=== PATIENT | male | born 1980 ===

== ENCOUNTER 2016-10-18 08:00 | Emergency (ER) | payer OTHER ==
[2016-10-18 08:18] VITALS: BP 114/76; PULSE 60; RESP 20; TEMP 98.6; O2SAT 98
--- NOTE | 2016-10-18 09:05 | C.PDOC ---
History Of Present Illness 35-year-old male, presents to the emergency department with complaints of 3- week duration of B/L knee pain. Pain is intermittent in nature, described as aching sensation and worse at the end of the day. States his job requires him to stand for prolonged periods. He tried changing his shoes with no relief. Denies nausea/vomiting, numbness/weakness, fevers, shortness of breath, swelling in legs or any other associated symptoms. No other complaints at this time. Time Seen by Provider: 10/18/16 08:30 Chief Complaint (Nursing): Lower Extremity Problem/Injury History Per: Patient History/Exam Limitations: no limitations Onset/Duration Of Symptoms: Days Current Symptoms Are (Timing): Still Present Severity: Moderate Past Medical History Reviewed: Historical Data, Nursing Documentation, Vital Signs Vital Signs: Last Vital Signs Temp 98.6 F 10/18/16 08:17 Pulse 60 10/18/16 08:17 Resp 20 10/18/16 08:17 BP 114/76 10/18/16 08:17 Pulse Ox 98 10/18/16 09:54 Family History: States: No Known Family Hx - Social History Hx Alcohol Use: Yes Hx Substance Use: No - Immunization History Hx Tetanus Toxoid Vaccination: No Hx Influenza Vaccination: No Hx Pneumococcal Vaccination: No Review Of Systems Except As Marked, All Systems Reviewed And Found Negative. Constitutional: Negative for: Fever, Chills Respiratory: Negative for: Cough, Shortness of Breath Gastrointestinal: Negative for: Nausea, Vomiting Musculoskeletal: Positive for: Leg Pain (bilateral knees pain) Skin: Negative for: Rash Physical Exam - Physical Exam Appears: Non-toxic, No Acute Distress Skin: Warm, Dry, No Rash, No Ecchymosis Head: Atraumatic, Normacephalic Eye(s): bilateral: Normal Inspection Neck: Normal ROM Chest: Symmetrical Extremity: Normal ROM, No Tenderness, No Pedal Edema, No Calf Tenderness, No Deformity, No Swelling Pulses: Left Dorsalis Pedis: Normal, Right Dorsalis Pedis: Normal Neurological/Psych: Oriented x3, Normal Speech Gait: Steady ED Course And Treatment O2 Sat by Pulse Oximetry: 98 Medical Decision Making Medical Decision Making: Impression 35 yo male with bilateral knee pain, no trauma Plan: * Toradol Reassess and Disposition Patient reports relief of pain. Based on history and exam, xray not indicated. bilateral knee joint pain, and no findings on exam. Recommend analgesics and rest when able to and elevate legs. May follow up in the clinic Disposition Counseled Patient/Family Regarding: Need For Followup, Rx Given - Disposition Referrals: [facility] [Outside] [facility] [Outside] [facility] [place] [Outside] Disposition: HOME/ ROUTINE Disposition Time: 09:02 Condition: STABLE Additional Instructions: [place] medicamentos para el dolor segn sea necesario, ibuprofeno 600mg cada 8 horas con alimentos para no molestar el estmago. Si el dolor persiste, realice el seguimiento con ortopedia en sly semana.... Prescriptions: Ibuprofen [Motrin] 600 mg PO Q8 #30 tab Instructions: Knee Pain (ED) Print Language: TURKISH - POA Present On Arrival: None - Clinical Impression Clinical Impression: Knee pain, bilateral - Scribe Statement The provider has reviewed the documentation as recorded by the Scribe (Jennifer Pavon) All medical record entries made by the Scribe were at my direction and personally dictated by me. I have reviewed the chart and agree that the record accurately reflects my personal performance of the history, physical exam, medical decision making, and the department course for this patient. I have also personally directed, reviewed, and agree with the discharge instructions and disposition.
== END 2016-10-18 09:21 | disposition home or self-care (01) ==
LOC: C.ER 08:00
DX: M25.562 Pain in left knee (principal); M25.561 Pain in right knee
CPT/HCPCS: 96372; 99284; J1885

== ENCOUNTER 2017-04-07 09:54 | Emergency (ER) | payer OTHER ==
[2017-04-07 10:00] VITALS: BMI 25.4
[2017-04-07 10:03] VITALS: BP 114/74; PULSE 67; RESP 18; TEMP 97.7; O2SAT 97
--- NOTE | 2017-04-07 11:43 | C.PDOC ---
Time Seen by Provider: 04/07/17 10:25 Chief Complaint (Nursing): Cough, Cold, Congestion History Per: Patient Onset/Duration Of Symptoms: Days (3) Current Symptoms Are (Timing): Still Present Associated Symptoms: Sore Throat, Cough, Myalgias, Nasal Congestion Severity: Moderate Additional History Per: Prior Records Past Medical History Reviewed: Historical Data, Nursing Documentation, Vital Signs Vital Signs: Last Vital Signs Temp 97.7 F 04/07/17 10:00 Pulse 67 04/07/17 10:00 Resp 18 04/07/17 10:00 BP 114/74 04/07/17 10:00 Pulse Ox 97 04/07/17 10:00 - Medical History PMH: No Chronic Diseases Surgical History: No Surg Hx Family History: States: Unknown Family Hx - Social History Hx Alcohol Use: Yes Hx Substance Use: No - Immunization History Hx Tetanus Toxoid Vaccination: No Hx Influenza Vaccination: No Hx Pneumococcal Vaccination: No Review Of Systems Except As Marked, All Systems Reviewed And Found Negative. Constitutional: Negative for: Weakness Cardiovascular: Negative for: Chest Pain Respiratory: Negative for: Shortness of Breath, Hemoptysis Gastrointestinal: Negative for: Vomiting, Abdominal Pain, Diarrhea Genitourinary: Negative for: Dysuria, Incontinence Musculoskeletal: Positive for: Back Pain (low). Negative for: Neck Pain Skin: Negative for: Rash Neurological: Negative for: Weakness, Numbness, Seizures, Altered Mental Status , Headache Physical Exam - Physical Exam Appears: Non-toxic, No Acute Distress Skin: Normal Color, Warm, Dry, No Rash Head: Atraumatic, Normacephalic Eye(s): bilateral: Normal Inspection, PERRL, EOMI Throat: Erythema, No Exudate, No Drooling, No Mass Neck: Normal ROM, Supple Cardiovascular: Rhythm Regular Respiratory: Normal Breath Sounds, No Accessory Muscle Use Gastrointestinal/Abdominal: Soft, No Tenderness Back: No CVA Tenderness, No Vertebral Tenderness, Paraspinal Tenderness (lower) Extremity: Normal ROM Neurological/Psych: Oriented x3, Normal Speech, Normal Motor, Normal Sensation ED Course And Treatment O2 Sat by Pulse Oximetry: 97 Pulse Ox Interpretation: Normal Reassessment Condition: Improved Disposition Counseled Patient/Family Regarding: Studies Performed, Diagnosis, Need For Followup, Rx Given - Disposition Referrals: [facility] [Outside] Disposition: HOME/ ROUTINE Disposition Time: 11:43 Condition: STABLE Additional Instructions: Follow up in the clinic for further evaluation and treatment. Return to the ER if you develop shortness of breath, high fever, worsening of symptoms or if you have any other concerns. Prescriptions: Guaifenesin/Dextromethorphan [Mucinex Dm ER 1,200-60 mg Tab] 1 tab PO BID PRN # 14 tab.er.12h PRN Reason: Cough And Congestion Ibuprofen [Motrin Tab] 600 mg PO Q8 PRN #30 tab PRN Reason: Pain, Moderate (4-7) Instructions: Cold Symptoms (ED), Acute Low Back Pain (ED) Print Language: PORTUGUESE - Clinical Impression Clinical Impression: Upper respiratory infection, Low back pain
== END 2017-04-07 11:53 | disposition home or self-care (01) ==
LOC: C.ER 09:54
DX: J06.9 Acute upper respiratory infection, unspecified (principal); M54.5 Low back pain; F17.210 Nicotine dependence, cigarettes, uncomplicated